=== PATIENT | female | born 1985 | race American Indian/Alaskan Native ===

== ENCOUNTER 2016-04-22 15:17 | Emergency (ER) | payer SELFPAY ==
[2016-04-22 16:08] VITALS: BP 101/68
== END 2016-04-23 | disposition left against medical advice (07) ==
LOC: ED 15:17
DX: R10.9 Unspecified abdominal pain (principal); R53.1 Weakness; Z53.21 Procedure and treatment not carried out due to patient leaving prior to being seen by health care provider

== ENCOUNTER 2016-04-23 05:09 | Inpatient (IN) | payer OTHER ==
--- NOTE | 2016-04-23 04:18 | Emergency Department Report ---
ED Female HPI - General Chief complaint: Abdominal Pain Stated complaint: ABDOMINAL PAIN Time Seen by Provider: 04/23/16 04:17 Source: patient, EMS (ems notes not available at time of chart dictation), RN notes reviewed Mode of arrival: Ambulatory Limitations: Other (patient is a poor historian) - History of Present Illness Initial comments: This is a 30-year-old female, previously unknown to me. Apparently she is brought to the hospital by EMS. Patient did not realize that she is . Upon arrival to the ER, patient was found to have an active miscarriage, with a large fetus being passed in the vaginal vault. Patient did not realize that she was . Her symptoms are constant. They're painful. She cannot describe exacerbating or relieving factors. Patient was found to be hemodynamically stable with a blood pressure in the 100s. 2 large-bore IVs were ordered. 2 L of IV fluid were ordered. Laboratory studies were ordered. Case was discussed with the leader assembler mounter sousaphones, Dr. Horta, who accepted the patient to his service to the labor and delivery floor. -: Gradual Quality: cramping Consistency: constant Improves with: none Worsens with: none Are you Now?: Yes Associated Symptoms: abdominal pain. denies: vaginal discharge - Related Data Sexually active: Yes Home Medications Medication Instructions Recorded Confirmed Last Taken No Known Home Medications [No 04/22/16 04/22/16 Unknown Reported Home Medications] Allergies Allergy/AdvReac Type Severity Reaction Status Date / Time No Known Allergies Allergy Verified 04/22/16 16:08 ED Review of Systems ROS: Stated complaint: ABDOMINAL PAIN Other details as noted in HPI Constitutional: malaise. denies: fever Eyes: denies: eye discharge ENT: denies: epistaxis Respiratory: denies: cough Cardiovascular: denies: chest pain Gastrointestinal: abdominal pain Genitourinary: as per HPI Musculoskeletal: as per HPI Skin: as per HPI Neurological: as per HPI Psychiatric: as per HPI Hematological/Lymphatic: as per HPI ED Past Medical Hx - Social History Smoking Status: Current Some Day Smoker Substance Use Type: Alcohol - Medications Home Medications: Home Medications Medication Instructions Recorded Confirmed Last Taken Type No Known Home Medications [No 04/22/16 04/22/16 Unknown History Reported Home Medications] ED Physical Exam - General Limitations: No Limitations General appearance: alert, in no apparent distress - Head Head exam: Present: atraumatic, normocephalic - Eye Eye exam: Present: normal appearance, EOMI. Absent: nystagmus - ENT ENT exam: Present: normal exam, normal orophraynx, mucous membranes moist - Neck Neck exam: Present: normal inspection, full ROM. Absent: tenderness, meningismus - Respiratory Respiratory exam: Present: normal lung sounds bilaterally. Absent: respiratory distress, wheezes, rales, rhonchi, stridor, chest wall tenderness - Cardiovascular Cardiovascular Exam: Present: normal rhythm, tachycardia, normal heart sounds. Absent: systolic murmur, diastolic murmur, rubs, gallop - GI/Abdominal GI/Abdominal exam: Present: soft, tenderness, normal bowel sounds, other ( suprapubic lower abdominal tenderness. There is no rebound, guarding or peritoneal signs.). Absent: distended, guarding, rebound, rigid, pulsatile mass - External exam: Present: normal external exam, other (a fetus is noted to be passing through the vaginal vault; formed head, torso and upper extremities are noted. Possible cord is noted. During the physical/vaginal exam, I am escorted by nurse Sandoval Montgomery) - Extremities Exam Extremities exam: Present: normal inspection, full ROM, normal capillary refill. Absent: tenderness, pedal edema, joint swelling, calf tenderness - Back Exam Back exam: Present: normal inspection, full ROM. Absent: tenderness, CVA tenderness (R), CVA tenderness (L), muscle spasm, paraspinal tenderness, vertebral tenderness - Neurological Exam Neurological exam: Present: alert, other (Extraocular movements intact. Tongue midline. No facial droop. Facial sensation intact to light touch in the V1, V2 , V3 distribution bilaterally. 5 and 5 strength in 4 extremities.. Sensation is intact to light touch in 4 extremities.). Absent: motor sensory deficit - Psychiatric Psychiatric exam: Present: normal affect, normal mood - Skin Skin exam: Present: warm, dry, intact, normal color. Absent: rash ED Course Vital Signs 04/23/16 04/23/16 03:41 04:20 Temperature 98.5 F Pulse Rate 109 H 99 H Respiratory 26 H 18 Rate Blood Pressure 136/82 Blood Pressure 106/65 [Right] O2 Sat by Pulse 99 99 Oximetry ED Medical Decision Making - Lab Data Result diagrams: 04/23/16 04:06 04/23/16 04:06 Vital Signs 04/23/16 04/23/16 03:41 04:20 Temperature 98.5 F Pulse Rate 109 H 99 H Respiratory 26 H 18 Rate Blood Pressure 136/82 Blood Pressure 106/65 [Right] O2 Sat by Pulse 99 99 Oximetry Lab Results 04/23/16 04/23/16 04/23/16 Range/Units 04:06 04:06 04:06 WBC 14.3 H (4.5-11.0) K/mm3 RBC 3.90 (3.65-5.03) M/mm3 Hgb 10.8 (10.1-14.3) gm/dl Hct 33.4 (30.3-42.9) % MCV 86 (79-97) fl MCH 28 (28-32) pg MCHC 32 (30-34) % RDW 15.4 H (13.2-15.2) % Plt Count 410 (140-440) K/mm3 Lymph % (Auto) 25.8 (13.4-35.0) % [place] % (Auto) 8.2 H (0.0-7.3) % Eos % (Auto) 3.3 (0.0-4.3) % Baso % (Auto) 0.2 (0.0-1.8) % Lymph # 3.7 (1.2-5.4) K/mm3 [place] # 1.2 H (0.0-0.8) K/mm3 Eos # 0.5 H (0.0-0.4) K/mm3 Baso # 0.0 (0.0-0.1) K/mm3 Seg Neutrophils % 62.5 (40.0-70.0) % Seg Neutrophils # 9.0 H (1.8-7.7) K/mm3 Estimated GFR > 60 ml/min BUN/Creatinine Ratio 11.11 % Total Bilirubin < 0.2 (0.1-1.2) mg/dL Albumin/Globulin Ratio 1.2 % HCG, Qual Positive (Negative) - Differential Diagnosis inevitable miscarriage Critical care attestation.: If time is entered above; I have spent that time in minutes in the direct care of this critically ill patient, excluding procedure time. ED Disposition Clinical Impression: Miscarriage Disposition: OP ADMITTED IP TO THIS HOSP Is pt being admited?: Yes Does the pt Need Aspirin: No Condition: Good Instructions: Abdominal Pain (ED)
[2016-04-23 04:47] LABS: Basophils % (Auto) 0.2 % (0.0-1.8); Eosinophils % (Auto) 3.3 % (0.0-4.3); Hematocrit 33.4 % (30.3-42.9); Hemoglobin 10.8 gm/dl (10.1-14.3); Mean Corpuscular HGB Conc 32 % (30-34); Mean Corpuscular Hemoglobin 28 pg (28-32); Mean Corpuscular Volume 86 fl (79-97); Platelet Count 410 K/mm3 (140-440); Red Cell Distribution Width 15.4 % (13.2-15.2); White Blood Count 14.3 K/mm3 (4.5-11.0)
[2016-04-23 04:56] LABS: Alanine Aminotransferase 6 units/L (7-56); Albumin 3.6 g/dL (3.9-5); Albumin/Globulin Ratio 1.2 %; Alkaline Phosphatase 74 units/L (35-129); BUN/Creatinine Ratio 11.11; Bilirubin,Total < 0.2 mg/dL (0.1-1.2); Blood Urea Nitrogen 10 mg/dL (7-17); Calcium 8.7 mg/dL (8.4-10.2); Carbon Dioxide 21 mmol/L (22-30); Chloride 101.9 mmol/L (98-107); Glucose 101 mg/dL (65-100); Potassium 3.6 mmol/L (3.6-5.0); Sodium 137 mmol/L (137-145); Total Protein 6.7 g/dL (6.3-8.2)
[2016-04-23 05:02] LABS: Anion Gap 18 mmol/L
[~2016-04-23 05:09] MED LIST: NACL 0.9% 1000 ML 2,000 ML ONE; NACL 0.9% 1000 ML IV ONE
--- NOTE | 2016-04-23 05:17 | Short Stay Summary ---
Short Stay Documentation Date of service: 04/23/16 Narrative H&P: C/O: Inevitable 30-year-old is transferred from the emergency room with inevitable , she has no care this . Her history patient cramping for 1 week, and to the ED for pain. In the emergency room, partial miscarriage occurred at about ~ 3 AM. Infant in breech presentation currently with head entrapment. He is transferred to [facility] from ED INTERN RETAIL/Medhx/Sughx: none Allergies no known drug allergies On exam, 2nd trimester appearing fetus noted protruding from the vagina in breech presentation Caput presently entrapped A: Inevitable at ~ 20 wks P: -Admit to [facility] -Type and screen -Cytotec 400 g NM. Q 3-4 hours - History Past Medical History: No medical history Past Surgical History: No surgical history Social history: single, no smoking, no alcohol abuse, no prescription drug abuse , no IV drug use - Allergies and Medications Current Medications: Allergies No Known Allergies Allergy (Verified 04/22/16 16:08) Home Medications Medication Instructions Recorded Confirmed Last Taken Type No Known Home Medications [No 04/22/16 04/22/16 Unknown History Reported Home Medications] - Physical exam General appearance: no acute distress, well-nourished Lungs: Clear to auscultation Heart: Regular rate, Normal S1, Normal S2 Gastrointestinal: normal, no tenderness, no distended, no guarding Female Genitourinary: other (See HPI) Extremities: no ischemia - Brief post op/procedure progress note Date of procedure: 04/23/16 Pre-op diagnosis: SAB at ~ 20 wks, No PNC Post-op diagnosis: same Procedure: Delivery Anesthesia: none Surgeon: LIZ OJEDA Estimated blood loss: other (600 cc) Pathology: none Condition: stable - Hospital course Hospital course: course was unremarkable, she is discharged home on day 1 in stable condition - Disposition Condition at discharge: Good Disposition: DISCHARGED TO HOME OR SELFCARE - Discharge Diagnoses (1) Second trimester Status: Acute Short Stay Discharge Plan Activity: no driving until cleared by PCP (No driving on narcotics), other ( Pelvic rest x 6 weeks) Weight Bearing Status: Weight Bear as Tolerated Diet: regular Follow up with: MELISSA YORK MD [Staff Physician] - 7 Days Prescriptions: Ibuprofen [Motrin 600 MG tab] 600 mg PO Q8H PRN #30 tablet PRN Reason: Pain Multivitamin with Iron [Multivitamins with Iron] 1 each PO DAILY #30 tablet HYDROcodone/APAP 5-325 [[place] 5/325] 1 each PO Q6HR PRN #10 tablet PRN Reason: Pain
[2016-04-23] MEDS ORDERED: NACL 0.9% 500 ML 500 ML IV ONE (05:28)
[2016-04-23] MEDS ORDERED: SUBLIMAZE ONE (05:35)
[2016-04-23] MEDS ORDERED: CYTOTEC PR ONE (05:53)
[2016-04-23] MEDS ORDERED: SUBLIMAZE IV ONE (05:54)
[2016-04-23] MEDS ORDERED: MOTRIN PO SCH (06:00)
[2016-04-23] MEDS ORDERED: PHENERGAN PR PRN (06:02)
[2016-04-23] MEDS ORDERED: BENADRYL PO PRN (06:02)
[2016-04-23] MEDS ORDERED: ZOFRAN IV PRN (06:02)
[2016-04-23] MEDS ORDERED: TYLENOL PO PRN (06:02)
[2016-04-23] MEDS ORDERED: DULCOLAX PR PRN (06:02)
[2016-04-23] MEDS ORDERED: DERMOPLAST TP PRN (06:02)
[2016-04-23] MEDS ORDERED: LANSINOH TP PRN (06:02)
[2016-04-23] MEDS ORDERED: NORCO 5/325 PO PRN (06:02)
[2016-04-23] MEDS ORDERED: TUCKS PAD TP PRN (06:02)
[2016-04-23] MEDS ORDERED: MILK OF MAGNESIA PO PRN (06:02)
[2016-04-23] MEDS ORDERED: PHENERGAN PO PRN (06:02)
--- NOTE | 2016-04-23 06:34 | Procedure Note ---
OB Delivery Note - Delivery Date of Delivery: 04/23/16 Surgeon: LIZ OJEDA Estimated blood loss: other (600 cc) - Vaginal Intrapartum events: no care (2nd trimester appearing infant, unsure of care) Delivery induction: misoprostol Delivery monitor: none Route of delivery: breech extraction Delivery placenta: spontaneous Episiotomy: none Delivery laceration: none Anesthesia: none - A at 1 minute: 0 at 5 minutes: 0 Gender: Ambiguous (Spoantaneous delivery of ~ 20 wk appearing at 05:17 AM)
[2016-04-23] MEDS ORDERED: PITOCin/NS 20 UNIT/1000ML DRIP 1,000 ML IV SCH (07:00)
[2016-04-23] MEDS ORDERED: SODIUM CHLORIDE FLUSH SYRINGE 10 ML IV NR (07:00)
[2016-04-23] MEDS ORDERED: CYTOTEC PO SCH (08:00)
[2016-04-23] MEDS ORDERED: SENOKOT S PO SCH (08:00)
[2016-04-23] MEDS ORDERED: FEOSOL PO SCH (10:00)
[2016-04-23] MEDS ORDERED: PRENATAL VITAMIN PO SCH (10:00)
[2016-04-23] MEDS ORDERED: COLACE PO SCH (10:00)
[2016-04-23 16:02] VITALS: BP 98/60
== END 2016-04-23 18:00 | disposition home or self-care (01) | DRG 770 ==
LOC: TRG 05:09 → LD 05:12 → OB 08:53
PROVIDERS: ADMIT Obstetrics & Gynecology; ATTEND Obstetrics & Gynecology
PROC: 10D17ZZ Extraction of Products of Conception, Retained, Via Natural or Artificial Opening (ICD-10-PCS; principal; 2016-04-23)
DX: O03.9 Complete or unspecified spontaneous abortion without complication (principal); O09.33 Supervision of pregnancy with insufficient antenatal care, third trimester; O99.332 Smoking (tobacco) complicating pregnancy, second trimester; F17.210 Nicotine dependence, cigarettes, uncomplicated
CPT/HCPCS: 36415; 80053; 84703; 85025; 86850; 86900; 86901; 86920; 99285; J3010; J7030

== ENCOUNTER 2017-03-06 22:22 | Outpatient (CLI) | payer MEDICAID ==
[2017-03-06] MEDS ORDERED: LACTATED RINGERS 500 ML IV ONE (23:07)
[2017-03-06 23:30] LABS: Bilirubin,Urine NEG (Negative); Blood,Urine NEG (Negative); Ketones,Urine NEG (Negative); Leukocyte Esterase,Urine MOD (Negative); Mucus,Urine 1+ /HPF; Nitrite,Urine NEG (Negative)
== END 2017-03-06 23:57 | disposition home or self-care (01) ==
LOC: TRG 22:22
PROVIDERS: ATTEND Obstetrics & Gynecology
DX: O26.893 Other specified pregnancy related conditions, third trimester (principal); R10.2 Pelvic and perineal pain; Z3A.35 35 weeks gestation of pregnancy
CPT/HCPCS: 81001; J7120

== ENCOUNTER 2017-03-12 17:25 | Outpatient (CLI) | payer MEDICAID ==
[2017-03-12 17:45] VITALS: BP 120/57
[2017-03-12] MEDS ORDERED: VISTARIL PO ONE (18:59)
[2017-03-12] MEDS ORDERED: LACTATED RINGERS 1,000 ML IV ONE (19:31)
== END 2017-03-12 19:23 | disposition home or self-care (01) ==
LOC: TRG 17:25
PROVIDERS: ATTEND Obstetrics & Gynecology
CPT/HCPCS: 59025; Q0177

== ENCOUNTER 2017-03-23 14:47 | Outpatient (CLI) | payer MEDICAID ==
[2017-03-23 16:42] VITALS: BP 126/61
--- NOTE | 2017-03-23 16:55 | Event Note ---
Date: 03/23/17 (decreased FM) BPP 01/26, reactive CAT 1 tracing. Patient states she doesnt feel baby's movement like before, but she does feel movement. I palpated abdomen x 2 minutes and clearly palpated 4 distinct movement. patient instructed on performing FKC and to call if continued decreased movement after regular meal and rest tonight. All questions addressed, pt verbalized understanding.
--- NOTE | 2017-03-23 17:20 | Ultrasound Report ---
FINAL REPORT PROCEDURE: US OB BPP WO NON-STRESS TECHNIQUE: Sonographic evaluation for breathing, movement, tone, and amniotic fluid volume was performed. CPT 44009 HISTORY: decreased movement COMPARISON: No prior studies are available for comparison. FINDINGS: Amniotic fluid volume: Normal-score 2. At least one vertical pocket > 2 cm or more in vertical axis. breathing: Normal-score 2. movement: Normal-score 2. tone: Normal. Score: 8 of 8. heart rate 146 beats per minute IMPRESSION: Normal biophysical profile.
== END 2017-03-23 17:15 | disposition home or self-care (01) ==
LOC: TRG 14:47
PROVIDERS: ATTEND Obstetrics & Gynecology
DX: O36.8130 Decreased fetal movements, third trimester, not applicable or unspecified (principal); O47.03 False labor before 37 completed weeks of gestation, third trimester; Z3A.38 38 weeks gestation of pregnancy
CPT/HCPCS: 59025; 76819

== ENCOUNTER 2017-03-24 08:01 | Inpatient (IN) | payer MEDICAID ==
[2017-03-24] MEDS ORDERED: LACTATED RINGERS 1,000 ML IV SCH ×2 (10:30→12:00)
--- NOTE | 2017-03-24 10:30 | Ultrasound Report ---
ULTRASOUND BIOPHYSICAL PROFILE: History: well being Technique: Transabdominal ultrasound with Doppler interrogation. 2 - breathing movements 2 - movements 2 - posture and tone 2 - Qualitative amniotic fluid volume 8 - TOTAL SCORE OF POSSIBLE 8 Heart Rate (bpm) 144
[2017-03-24] MEDS ORDERED: TYLENOL PO PRN (11:07)
[2017-03-24] MEDS ORDERED: ZOFRAN IV PRN (11:07)
[2017-03-24] MEDS ORDERED: COLACE PO PRN (11:07)
[2017-03-24 11:55] LABS: Basophils % (Auto) 0.4 % (0.0-1.8); Eosinophils % (Auto) 1.3 % (0.0-4.3); Hematocrit 23.2 % (30.3-42.9); Hemoglobin 7.2 gm/dl (10.1-14.3); Mean Corpuscular HGB Conc 31 % (30-34); Platelet Count 285 K/mm3 (140-440); Red Blood Count 3.43 M/mm3 (3.65-5.03); White Blood Count 8.8 K/mm3 (4.5-11.0)
[2017-03-24 11:56] LABS: Mean Corpuscular Hemoglobin 21 pg (28-32); Mean Corpuscular Volume 68 fl (79-97); Red Cell Distribution Width 20.7 % (13.2-15.2)
--- NOTE | 2017-03-24 12:32 | History and Physical Report ---
History of Present Illness Date of examination: 03/24/17 Chief complaint: decreased movement, chest pain and "just not feeling right" History of present illness: EDC Calculations LMP: 04/05/2017 Past History : 5 Term Births: 3 Living Children: 3 Para: 3 Spont. Ab: 1 # 1 Delivery date: 2006 Weeks Gestation: 40 Delivery type: Anesthesia type: none Delivery location: [facility] [place] Sex: Female weight: 6-6 # 2 Delivery date: 2008 Weeks Gestation: 40 Delivery type: Anesthesia type: epidural Delivery location: [facility] [place] Infant Sex: Female weight: 7-6 # 3 Delivery date: 2010 Weeks Gestation: 40 Delivery type: Anesthesia type: epidural Delivery location: [facility] [place] Infant Sex: Female weight: 6-6 Comments: MECONIUM Past Medical History: Negative Past Medical History Past Surgical History: Negative Past Surgical History Past Medical History Surgery (Non-fitness assistant): Negative Past Surgical History Abnormal PAP: negative ANDREA Exposure: negative Infertility: negative Uterine Anomaly: negative Uterine Surgery (not C/S): negative Other Gynecologic Problems: negative Medical History Comments: NEG Family Hx: DM HTM Social Hx: single former tobacco-stopped since Infection History Hx of STD: chlamydia Partner hx. of genital herpes: no Rash, Viral, or Febrile illness since last LMP? no Varicella/Chicken Pox Status: Previous Disease Genetic History Congenital Heart Defect: Mom: no Dad: no Rickey Disease: Mom: no Dad: no Thalassemia Mom: no Dad: no Neural Tube Defect Mom: no Dad: no Down's Syndrome Mom: no Dad: no Rainer-Sachs Mom: no Dad: no Sickle Cell Disease/Trait Mom: no Dad: yes Comments: nephew Hemophilia Mom: no Dad: no Muscular Dystrophy Mom: no Dad: no Cystic Fibrosis Mom: no Dad: no [place] Chorea Mom: no Dad: no Mental Retardation Mom: no Dad: no Fragile X Mom: no Dad: no Other Genetic/Chromosomal Disorder Mom: no Dad: no Child w/other defect Mom: no Dad: no Comments/Counseling: boyfriend's niece-missing limbs Enviromental Exposures Xray Exposure: no Medication, drug, or alcohol use since LMP: no Chemical/Other Exposure: no Exposure to Cat Liter: no Hx of Parvovirus (Fifth Disease): no Occupational Exposure to Children: none Current Allergies (reviewed today): No known allergies Past History Past Medical History: other (see HPI) Past Surgical History: no surgical history 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: other (see HPI) Family/Genetic History: other (see HPI) Social history: other (see HPI) - Obstetrical History Expected Date of Delivery: 04/05/17 Actual Gestation: 38 Week(s) 2 Day(s) : 5 Para: 3 Hx # Term Pregnancies: 3 Number of Pregnancies: 0 Spontaneous Abortions: 1 Induced : 0 Number of Living Children: 3 Medications and Allergies Allergies Allergy/AdvReac Type Severity Reaction Status Date / Time No Known Allergies Allergy Verified 03/23/17 14:56 Home Medications Medication Instructions Recorded Confirmed Last Taken Type Multivitamin with Iron 1 each PO DAILY #30 tablet 04/23/16 03/24/17 Unknown Rx [Multivitamins with Iron] Active Meds: Active Medications Acetaminophen (Tylenol) 650 mg PO Q4H PRN PRN Reason: Pain MILD(1-3)/Fever >100.5/JOVEL Docusate Sodium (Colace) 100 mg PO Q12H PRN PRN Reason: Constipation Lactated Ringer's (Lactated Ringers) 1,000 mls @ 150 mls/hr IV DIRECT ARPAN Lactated Ringer's (Lactated Ringers) 1,000 mls @ 125 mls/hr IV DIRECT ARPAN Multivitamins/Iron/Calcium ( Vitamin) 1 each PO QDAY ARPAN Ondansetron HCl (Zofran) 4 mg IV Q6H PRN PRN Reason: Nausea And Vomiting Review of Systems All systems: negative Constitutional: malaise Cardiovascular: chest pain - Vital Signs Vital signs: Vital Signs Pulse BP 105 H 120/71 03/24/17 08:20 03/24/17 08:20 Temp Pulse Resp BP Pulse Ox 97.1 F L 82 20 115/60 99 03/24/17 10:45 03/24/17 12:31 03/24/17 10:45 03/24/17 10:48 03/24/17 12:31 - Physical Exam Breasts: Positive: normal Cardiovascular: Regular rate Lungs: Positive: Clear to auscultation, Normal air movement Abdomen: Positive: normal appearance, soft Vulva: both: normal Vagina: Positive: normal moisture Extremities: Positive: normal Deep Tendon Reflex Grade: Normal +2 - Obstetrical FHR: category 2 Uterine Contraction Monitor Mode: External Uterine Contraction Pattern: Irregular Results Result Diagrams: 03/24/17 11:40 Abnormal lab results 03/24/17 Range/Units 11:40 RBC 3.43 L (3.65-5.03) M/mm3 Hgb 7.2 L (10.1-14.3) gm/dl Hct 23.2 L (30.3-42.9) % MCV 68 L (79-97) fl MCH 21 L (28-32) pg RDW 20.7 H (13.2-15.2) % [place] % (Auto) 8.6 H (0.0-7.3) % Seg Neutrophils % 73.2 H (40.0-70.0) % All other labs normal. Assessment and Plan 31y/o @ 38w2d, complicated by anemia, late care @ 23 weeks, THC use in and rubella non-immune. Pt arrived to triage (second visit in 24h) reporting decreased movement and generalized "not feeling right." she also c/o nonspecific chest pain. Patient's c/o last night was decreased movement and she did not mention any of her other symptoms. Last night BPP 10/10, reactive NST and movement palpated by this provider 4 distinct movements in 2 minutes. Patient called the answering service this morning with c /o decreased movement (6-7 movements over the course of 6 hours) and not feeling well. 12L EKG done in triage showed sinus arrhythemia. H&H is now 7/23 ( 8.5/28.3 at initial OB visit in December). Tracing overall reassuring with accels and moderate variability, possibly some variables noted. Plan, Dr. Mullen consulted: extended monitoring and cardiology consult. Observation orders in EMR - Patient Problems (1) 38 weeks gestation of Current Visit: Yes Status: Acute (2) Abnormal finding on EKG Current Visit: Yes Status: Acute Plan to address problem: 12l EKG done d/t patient's complaints of chest pain Sinus arrhythmia noted Cardiology consult with Dr. Park (3) Anemia affecting in third trimester Current Visit: Yes Status: Acute (4) Non-reassuring electronic monitoring tracing Current Visit: Yes Status: Acute Plan to address problem: BPP 8/8 Extended monitoring (5) Rubella non-immune status, antepartum Current Visit: Yes Status: Acute Plan to address problem: MMR
[2017-03-24 13:33] LABS: Urine Drugs of Abuse Note Disclamer
[2017-03-24 13:49] LABS: Bilirubin,Urine NEG (Negative); Blood,Urine NEG (Negative); Ketones,Urine NEG (Negative); Leukocyte Esterase,Urine LG (Negative); Mucus,Urine FEW /HPF; Nitrite,Urine NEG (Negative); Protein,Urine <15 mg/dL mg/dL (Negative); Urobilinogen,Urine < 2.0 mg/dL (<2.0)
--- NOTE | 2017-03-24 14:44 | Event Note ---
Date: 03/24/17 Pt seems to have symptomatic anemia but also had EKG done that showed sinus arrythmia. Cards has been consulted and will given one unit of blood. Pt has been anemic through out this gestation but has not take iron as rx'd. She does not show signs of labor at this time as per paint spray tender exam.
[2017-03-24] MEDS ORDERED: NACL 0.9% 500 ML 500 ML IV NR (14:54)
[2017-03-24] MEDS ORDERED: NACL 0.9% 250ML 250 ML ONE (23:07)
--- NOTE | 2017-03-25 06:28 | Progress Note ---
Assessment and Plan - Patient Problems (1) Abnormal finding on EKG Onset Date: ~03/25/17 Current Visit: Yes Status: Acute Plan to address problem: Cardiology to see today (2) Anemia affecting in third trimester Onset Date: ~03/25/17 Current Visit: Yes Status: Acute Plan to address problem: Pt resting C/O just being tired States she does feel much better after the transfusion FHR Cat 1 No ctx recorded.. EFM off for AM care Diet ordered. Possible d/c today if cleared by Cardiology. Continue POC for now. Subjective - Subjective Date of service: 03/25/17 (transfusion completed CBC pending) Principal diagnosis: IUP 38w3d Anemia; S/P transfusion Patient reports: movement normal Objective - Vital Signs Vital Signs: Vital Signs - 12hr 03/24/17 03/24/17 03/24/17 19:26 19:30 23:27 Temperature 97.4 F L 97.4 F L Pulse Rate 93 H 93 H 94 H Respiratory 18 18 Rate Blood Pressure 110/65 112/63 Blood Pressure 110/65 [Right] 03/24/17 03/24/17 03/25/17 23:30 23:47 00:20 Temperature Pulse Rate 94 H 91 H 97 H Respiratory Rate Blood Pressure 112/63 117/68 109/57 Blood Pressure [Right] 03/25/17 03/25/17 00:39 01:11 Temperature Pulse Rate 95 H 93 H Respiratory Rate Blood Pressure 111/60 119/59 Blood Pressure [Right] - Exam Breasts: deferred Cardiovascular: Regular rate Lungs: Normal air movement Abdomen: Present: normal appearance, soft, normal bowel sounds. Absent: distention, tenderness Uterus: Present: normal FHR: auscultation normal, category 1 Uterine Contraction Monitor Mode: External Uterine Contraction Pattern: Absent Uterine Tone Measurement Phase: Resting Extremities: normal - Labs Labs: Abnormal Labs 03/24/17 03/24/17 03/24/17 11:40 12:05 17:19 RBC 3.43 L Hgb 7.2 L Hct 23.2 L MCV 68 L MCH 21 L RDW 20.7 H [place] % (Auto) 8.6 H Seg Neutrophils % 73.2 H Urine WBC (Auto) 10.0 H Crossmatch See Detail Laboratory Results - last 24 hr 03/24/17 03/24/17 03/24/17 11:40 12:05 12:05 WBC 8.8 RBC 3.43 L Hgb 7.2 L Hct 23.2 L MCV 68 L MCH 21 L MCHC 31 RDW 20.7 H Plt Count 285 Lymph % (Auto) 16.5 [place] % (Auto) 8.6 H Eos % (Auto) 1.3 Baso % (Auto) 0.4 Lymph # 1.4 [place] # 0.8 Eos # 0.1 Baso # 0.0 Seg Neutrophils % 73.2 H Seg Neutrophils # 6.4 Urine Color Yellow Urine Turbidity Clear Urine pH 7.0 Ur Specific [place] 1.011 Urine Protein <15 mg/dl Urine Glucose (UA) Neg Urine Ketones Neg Urine Blood Neg Urine Nitrite Neg Urine Bilirubin Neg Urine Urobilinogen < 2.0 Ur Leukocyte Esterase Lg Urine WBC (Auto) 10.0 H Urine RBC (Auto) 4.0 U Epithel Cells (Auto) 7.0 Urine Mucus Few Urine Opiates Screen Presumptive negative Urine Methadone Screen Presumptive negative Ur Barbiturates Screen Presumptive negative Ur Phencyclidine Scrn Presumptive negative Ur Amphetamines Screen Presumptive negative U Benzodiazepines Scrn Presumptive negative Urine Cocaine Screen Presumptive negative U Marijuana (THC) Screen Presumptive negative Drugs of Abuse Note Disclamer Blood Type Antibody Screen Crossmatch 03/24/17 17:19 WBC RBC Hgb Hct MCV MCH MCHC RDW Plt Count Lymph % (Auto) [place] % (Auto) Eos % (Auto) Baso % (Auto) Lymph # [place] # Eos # Baso # Seg Neutrophils % Seg Neutrophils # Urine Color Urine Turbidity Urine pH Ur Specific [place] Urine Protein Urine Glucose (UA) Urine Ketones Urine Blood Urine Nitrite Urine Bilirubin Urine Urobilinogen Ur Leukocyte Esterase Urine WBC (Auto) Urine RBC (Auto) U Epithel Cells (Auto) Urine Mucus Urine Opiates Screen Urine Methadone Screen Ur Barbiturates Screen Ur Phencyclidine Scrn Ur Amphetamines Screen U Benzodiazepines Scrn Urine Cocaine Screen U Marijuana (THC) Screen Drugs of Abuse Note Blood Type O POSITIVE Antibody Screen Negative Crossmatch See Detail
[2017-03-25 07:44] LABS: Hematocrit 25.3 % (30.3-42.9); Hemoglobin 7.9 gm/dl (10.1-14.3)
[2017-03-25] MEDS ORDERED: PRENATAL VITAMIN PO SCH (10:00)
[2017-03-25 11:51] VITALS: BP 112/62
--- NOTE | 2017-03-25 13:55 | Discharge Summary ---
Providers - Providers Date of Admission: 03/25/17 12:08 Date of discharge: 03/25/17 (pt request to go home Will see Cardiology outpatient) Attending physician: DAVE GLYNN 03/24/17 11:07 Consult to Physician [CONS] Routine Consulting Provider: LIANNE HORTON Reason For Exam: sinus arrhythmia, chest pain, [address] consult to:: Tash Notified:: Y Phone number called:: [phone] Was contact made?: Yes If yes, spoke with:: Edith Time called:: 07:17 Comment:: call placed to ans service Primary care physician: RHODA MONTERROSO Hospitalization Reason for admission: other (malaise anemia; recieved transfusion) Discharge diagnosis: other (anemia) Hospital course: anemia sx resolved with one unit PRC Pt d/c home with instructions Keep appt pedro pablo for tomorrow in our office Pt will call for appt with Cardiology information provided VSS Cat 1 strip Occ mild ctx Cervix closed All questions addressed Condition at discharge: Good Disposition: DC-01 TO HOME OR SELFCARE - Discharge Diagnoses (1) Abnormal finding on EKG Status: Acute Comment: pt will call cardiology for out pt appt (2) Anemia affecting in third trimester Status: Acute Comment: rx po iron and colace provided at d/c Plan - Provider Discharge Summary Activity: routine Diet: other (increase dietary iron) Instructions: routine Additional instructions: [] Smoking cessation referral if applicable(refer to patient education folder for contact #) [] Refer to [facility]'s [facility] Booklet Call your doctor immediately for: * Fever > 100.5 * Heavy vaginal bleeding ( >1 pad per hour) * Severe persistent headache * Shortness of breath * Reddened, hot, painful area to leg or breast * Drainage or odor from incision. * Keep incision clean and dry at all times and follow doctor's instructions regarding bathing/showering - Follow up plan Follow up: RHODA MONTERROSO MD [Primary Care Provider] - 03/26/17 (Keep appointment in our office as scheduled Call Cardiology office: [facility] ; [address] [place] [address]; [place] [address]; Call [phone] with any concerns.)
[2017-03-25] MEDS ORDERED: NACL 0.9% 250ML 250 ML IV ONE (23:07)
== END 2017-03-25 14:50 | disposition home or self-care (01) | DRG 781 ==
LOC: TRG 08:01 → LD 16:48 → OBSVTOIN 03-25 12:08
PROVIDERS: ADMIT Obstetrics & Gynecology; ATTEND Obstetrics & Gynecology
PROC: 30233N1 Transfusion of Nonautologous Red Blood Cells into Peripheral Vein, Percutaneous Approach (ICD-10-PCS; principal; 2017-03-25)
DX: O99.013 Anemia complicating pregnancy, third trimester (principal); D64.9 Anemia, unspecified; O76 Abnormality in fetal heart rate and rhythm complicating labor and delivery; Z3A.38 38 weeks gestation of pregnancy; Z87.891 Personal history of nicotine dependence; Z82.49 Family history of ischemic heart disease and other diseases of the circulatory system; Z83.3 Family history of diabetes mellitus
CPT/HCPCS: 36415; 76819; 80307; 81001; 85014; 85018; 85025; 86850; 86900; 86901; 86920; 93005; 93010; G0378; J7050; J7120; P9016

== ENCOUNTER 2017-03-28 21:16 | Inpatient (IN) | payer MEDICAID ==
[2017-03-28] MEDS ORDERED: BRETHINE SUB-Q PRN (22:19)
[2017-03-28] MEDS ORDERED: MINERAL OIL PO PRN (22:19)
[2017-03-28] MEDS ORDERED: XYLOCAINE 2% INFILTRATI ONE (22:19)
[2017-03-28] MEDS ORDERED: ZOFRAN IV PRN (22:19)
[2017-03-28] MEDS ORDERED: STADOL IV PRN (22:19)
[2017-03-28] MEDS ORDERED: SUBLIMAZE IV PRN (22:19)
[2017-03-28] MEDS ORDERED: ePHEDrine SULFATE IV PRN (22:19)
[2017-03-28] MEDS ORDERED: BRETHINE IVP PRN (22:19)
--- NOTE | 2017-03-28 22:26 | History and Physical Report ---
History of Present Illness Date of examination: 03/28/17 Date of admission: 03/28/2017 Chief complaint: 31 yo G admitted in active labor at term MBT o pos , Rub not Im, GBS neg Admitted a week ago with chest pain, sinus arrhythmia and received 1 unit PRBC and discharged to out pt Cardiology f/u. No problems since and has felt better. 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 Weight (lb): 178 BMI: 29.7 Pre- Weight: 160 BP: 90/ 50 mm Hg Ur. Protein: negative Ur. Glucose: negative Chief Complaint/Current Status: New patient presents for missed period, she complains of some nvp and breast tenderness....Maribeth Mcarthur Menstrual History Regularity: regular Menses every: 28 days Duration: 5 LMP: 06/29/2016 LMP reliability: definite LMP character: normal test type: urine test Date: 12/09/2016 BC at conception: none Planned ? yes EDC Calculations LMP: 04/05/2017 EDC Confirmation: 04/05/2017 Gestational Age: 23 2/7 weeks Past History : 5 Term Births: 3 Living Children: 3 Para: 3 Spont. Ab: 1 # 1 Delivery date: 2006 Weeks Gestation: 40 Delivery type: Anesthesia type: none Delivery location: [facility] [place] Sex: Female weight: 6-6 # 2 Delivery date: 2008 Weeks Gestation: 40 Delivery type: Anesthesia type: epidural Delivery location: [facility] [place] Infant Sex: Female weight: 7-6 # 3 Delivery date: 2009 Weeks Gestation: 40 Delivery type: Anesthesia type: epidural Delivery location: 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 of genital herpes: no Rash, Viral, or Febrile illness since last LMP? no Varicella/Chicken Pox Status: Previous Disease Genetic History Congenital Heart Defect: Mom: no Dad: no Rickey Disease: Mom: no Dad: no Thalassemia Mom: no Dad: no Neural Tube Defect Mom: no Dad: no Down's Syndrome Mom: no Dad: no Rainer-Sachs Mom: no Dad: no Sickle Cell Disease/Trait Mom: no Dad: yes Comments: nephew Hemophilia Mom: no Dad: no Muscular Dystrophy Mom: no Dad: no Cystic Fibrosis Mom: no Dad: no Eric Chorea Mom: no Dad: no Mental Retardation Mom: no Dad: no Fragile X Mom: no Dad: no Other Genetic/Chromosomal Disorder Mom: no Dad: no Child w/other defect Mom: no Dad: no Comments/Counseling: boyfriend's niece-missing limbs Enviromental Exposures Xray Exposure: no Medication, drug, or alcohol use since LMP: no Chemical/Other Exposure: no Exposure to Cat Liter: no Hx of Parvovirus (Fifth Disease): no Occupational Exposure to Children: none Current Allergies (reviewed today): No known allergies Laboratory Results Date/Time Collected: 12/09/2016 Routine Urinalysis Leukocytes: negative Nitrite: negative Urobilinogen: negative Protein: negative Blood: negative Ketone: negative Bilirubin: negative Glucose: negative Urine HCG: positive PHYSICAL EXAM HEENT: PERRLA, normal conjunctiva, external nose and nasal mucosa normal, oropharynx clear Neck/Thyroid: supple, thyroid normal Skin no significant abnormal lesions or rashes Chest: respiratory effort normal, clear to auscultation Breasts: normal without skin changes or masses CV: regular, normal S1-S2, no murmur, no rub, no gallop Abdomen: normal bowel sounds, soft, nontender, no HSM Musculoskeletal: grossly normal ROM in joints, no joint tenderness or muscle weakness Neuro: grossly normal DTRs, sensation, strength, cranial nerves Extremities: no clubbing, cyanosis, or edema 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 Vulva/Vagina: No lesions, normal BUS, normal rugae Cervix: No lesions; no cervical motion tenderness Uterus: normal size and position, midline, mobile Adnexae: no masses or tenderness Rectovaginal: no masses or tenderness Flowsheet View for Follow-up Visit Estimated weeks of gestation: 23 2/7 Weight: 178 Blood pressure: 90 / 50 Urine protein: negative Urine glucose: negative Urine nitrite: negative Impression & Recommendations: Problem # 1: Irregular Menses ([id number]) Orders: Vaginal Delivery(w/ antepartum and care) (CPT-91138) Handling specimen fee (CPT-99153) Missed period US (CPT-83756) Urine Test (UPT) (CPT-28645) Pap(<30yo) CT/NG rflx HR HPV ([id number])([id number]) (CPT-59027) Urine Chemstrip (CPT-35969) Past History - Obstetrical History : 5 Medications and Allergies Allergies Allergy/AdvReac Type Severity Reaction Status Date / Time No Known Allergies Allergy Verified 03/23/17 14:56 Home Medications Medication Instructions Recorded Confirmed Last Taken Type Ferrous Sulfate [Feosol 325 MG tab] 325 mg PO BID #60 tablet 03/25/17 03/28/17 03/28/17 Rx Vit-Fe Fumar-FA [ 1 tab PO QDAY 03/28/17 03/28/17 03/28/17 History Vitamin] - Vital Signs Vital signs: Vital Signs Temp Resp 97.6 F 20 03/28/17 21:32 03/28/17 21:32 Temp Pulse Resp BP Pulse Ox 97.6 F 82 20 117/56 99 03/28/17 21:32 03/28/17 22:19 03/28/17 21:32 03/28/17 21:34 03/28/17 22:19 Results Result Diagrams: 03/28/17 23:05 All other labs normal. Assessment and Plan - Patient Problems (1) Active labor at term Current Visit: Yes Status: Acute (2) Anemia affecting in third trimester Onset Date: ~03/25/17 Current Visit: No Status: Acute (3) Late care complicating in second trimester Current Visit: No Status: Acute
[2017-03-28] MEDS ORDERED: PITOCin/NS 20 UNIT/1000ML DRIP 20 UNITS/1,000 ML BAG IV SCH (23:00)
[2017-03-28] MEDS ORDERED: PITOCin/NS 30 UNIT/500ML 30 UNITS/500 ML BAG IV SCH ×2 (23:00)
[2017-03-28] MEDS: LACTATED RINGERS 1,000 ML IV SCH (23:05)
[2017-03-28 23:51] LABS: Hematocrit 26.9 % (30.3-42.9); Hemoglobin 8.3 gm/dl (10.1-14.3); Mean Corpuscular HGB Conc 31 % (30-34); Platelet Count 282 K/mm3 (140-440); Red Blood Count 3.92 M/mm3 (3.65-5.03); White Blood Count 11.2 K/mm3 (4.5-11.0)
[2017-03-28 23:53] LABS: Mean Corpuscular Hemoglobin 21 pg (28-32); Mean Corpuscular Volume 69 fl (79-97); Red Cell Distribution Width 21.3 % (13.2-15.2)
[2017-03-28] MEDS ORDERED: fentaNYL-BUPIV 2 MCG/ML-0.125% 200 MCG/100 ML BAG EPIDURAL ONE (23:53)
[2017-03-29] MEDS: LACTATED RINGERS 1,000 ML IV SCH (00:09)
[2017-03-29] MEDS ORDERED: NARCAN 2 MG/2 ML IV PRN (00:19)
[2017-03-29] MEDS ORDERED: ePHEDrine SULFATE IV PRN (00:19)
--- NOTE | 2017-03-29 00:19 | Anesthesia Consultation ---
Anesthesia Consult and Med Hx Date of service: 03/29/17 - Airway Anesthetic Teeth Evaluation: Good ROM Head & Neck: Adequate Mental/Hyoid Distance: Adequate Mallampati Class: Class II Intubation Access Assessment: Probably Good - Pulmonary Exam CTA: Yes - Cardiac Exam Cardiac Exam: RRR - Pre-Operative Health Status ASA Pre-Surgery Classification: ASA2 Proposed Anesthetic Plan: Epidural - Pulmonary Hx Asthma: No COPD: No Hx Pneumonia: No - Cardiovascular System Hx Hypertension: No - Central Nervous System Hx Seizures: No Hx Psychiatric Problems: No - Endocrine Hx Renal Disease: No Hx End Stage Renal Disease: No Hx Hypothyroidism: No Hx Hyperthyroidism: No - Hematic Hx Anemia: Yes (blood transfusion on night) Hx Sickle Cell Disease: No - Other Systems Hx Alcohol Use: No
[2017-03-29] MEDS ORDERED: fentaNYL-BUPIV 2 MCG/ML-0.125% 200 MCG/100 ML BAG EPIDURAL SCH (01:00)
--- NOTE | 2017-03-29 02:05 | Procedure Note ---
OB Delivery Note - Delivery Date of Delivery: 03/29/17 Surgeon: RHODA MONTERROSO Estimated blood loss: 300cc - Vaginal Delivery presentation: vertex Delivery position: OA Intrapartum events: none Delivery induction: none Delivery monitor: external FHT, external uterine Route of delivery: Delivery placenta: spontaneous Delivery cord: nuchal cord, 3 umbilical vessels Episiotomy: none Delivery laceration: none (minor periurethral) Anesthesia: epidural - Infant A at 1 minute: 8 at 5 minutes: 9 Infant Gender: Male (7#8oz 3414 gm)
[2017-03-29] MEDS ORDERED: LANSINOH TP PRN (02:08)
[2017-03-29] MEDS ORDERED: DULCOLAX PR PRN (02:08)
[2017-03-29] MEDS ORDERED: TYLENOL PO PRN (02:08)
[2017-03-29] MEDS ORDERED: PHENERGAN PO PRN (02:08)
[2017-03-29] MEDS ORDERED: MILK OF MAGNESIA PO PRN (02:08)
[2017-03-29] MEDS ORDERED: TUCKS PAD TP PRN (02:08)
[2017-03-29] MEDS ORDERED: PHENERGAN PR PRN (02:08)
[2017-03-29] MEDS ORDERED: ZOFRAN IV PRN (02:08)
[2017-03-29] MEDS ORDERED: BENADRYL PO PRN (02:08)
[2017-03-29] MEDS ORDERED: SODIUM CHLORIDE FLUSH SYRINGE 10 ML IV PRN (03:00)
[2017-03-29] MEDS: MOTRIN PO SCH ×3 (04:30→22:09)
[2017-03-29] MEDS: NORCO 5/325 PO PRN ×3 (06:16→17:58)
--- NOTE | 2017-03-29 07:38 | Event Note ---
Date: 03/29/17 (pt 4hr PP) pt resting quietly No c/o voiced Continue pathway Advance as tolerated
[2017-03-29] MEDS: COLACE PO SCH ×2 (10:45→22:09)
[2017-03-29 14:40] LABS: Hematocrit 26.4 % (30.3-42.9); Hemoglobin 8.3 gm/dl (10.1-14.3)
[2017-03-30] MEDS: MOTRIN PO SCH ×2 (00:20→05:30)
[2017-03-30] MEDS ORDERED: M-M-R II VACCINE SUB-Q ONE (02:08)
[2017-03-30] MEDS ORDERED: BOOSTRIX IM ONE (06:00)
--- NOTE | 2017-03-30 08:07 | Progress Note ---
Assessment and Plan patient doing well w/o complaints. VSSAF, lochia scant, H&H 8.3/26.4 ( preexisting anemia, asymptomatic.)patient breast feeding without concerns. plan for d/c home today with routine f/u in office. - Patient Problems (1) Vaginal delivery Current Visit: Yes Status: Acute Subjective - Subjective Date of service: 03/30/17 Principal diagnosis: day #1 s/p Patient reports: appetite normal, voiding normally, pain well controlled, ambulating normally, no dizzy ambulation, no nauseated [place]: doing well, nursing well Objective - Vital Signs Latest vital signs: Vital Signs Temp Pulse Resp BP Pulse Ox 03/29/17 23:00 97.9 F 84 18 109/69 03/29/17 16:51 99.2 F 83 20 105/65 98 03/29/17 11:54 98.0 F 91 H 18 112/78 99 03/29/17 08:50 97.6 F 96 H 20 98/68 99 Intake and Output 03/29/17 03/30/17 03/30/17 23:59 07:59 15:59 Intake Total 600 240 Balance 600 240 Intake: Intake, Free Water 600 240 Other: # Voids Void 2 1 # Bowel Movements 1 - Exam Breasts: Present: normal, Cardiovascular: Present: Regular rate Lungs: Present: Clear to auscultation, Normal air movement Abdomen: Present: normal appearance, soft, normal bowel sounds Vulva: both: normal Uterus: Present: normal, firm, fundal height at umbilicus Extremities: Present: normal - Labs Labs: Abnormal lab results 03/29/17 Range/Units 14:12 Hgb 8.3 L (10.1-14.3) gm/dl Hct 26.4 L (30.3-42.9) %
--- NOTE | 2017-03-30 08:08 | Discharge Summary ---
Providers - Providers Date of Admission: 03/28/17 22:42 Date of discharge: 03/30/17 Attending physician: RHODA MONTERROSO Primary care physician: RHODA MONTERROSO Hospitalization Reason for admission: active labor Delivery: Episiotomy: none Laceration: none Other procedures: none complications: none Discharge diagnosis: IUP at term delivered baby: male Hospital course: uncomplicated vaginal Condition at discharge: Good Disposition: DC-01 TO HOME OR SELFCARE - Discharge Diagnoses (1) Vaginal delivery Status: Acute Plan - Discharge Medications Prescriptions: Ibuprofen [Motrin 600 MG tab] 600 mg PO Q8H PRN #30 tablet PRN Reason: Pain Lidocain2.5%/Prilocai2.5% [Emla] 5 gm TP 1XW #1 tube - Provider Discharge Summary Activity: routine, no sex for 6 weeks, no heavy lifting 4 weeks, no strenuous exercise Diet: routine Instructions: routine Additional instructions: [] Smoking cessation referral if applicable(refer to patient education folder for contact #) [] Refer to [facility]'s [facility] Booklet Call your doctor immediately for: * Fever > 100.5 * Heavy vaginal bleeding ( >1 pad per hour) * Severe persistent headache * Shortness of breath * Reddened, hot, painful area to leg or breast * Drainage or odor from incision. * Keep incision clean and dry at all times and follow doctor's instructions regarding bathing/showering - Follow up plan Follow up: RHODA MONTERROSO MD [Primary Care Provider] - 7 Days (Congratulations! Please call [phone] to schedule your son's circumcision in 1 week and your appointment in 4 weeks. Bring EMLA cream to your son's appointment and await further instructions. Call for any questions or concerns.)
[2017-03-30 14:04] VITALS: BP 109/61
== END 2017-03-30 13:05 | disposition home or self-care (01) | DRG 775 ==
LOC: TRG 21:16 → LD 22:42 → OB 03-29 04:21
PROVIDERS: ADMIT Obstetrics & Gynecology; ATTEND Obstetrics & Gynecology
PROC: 10E0XZZ Delivery of Products of Conception, External Approach (ICD-10-PCS; principal; 2017-03-29)
PROC: 3E0R3BZ Introduction of Anesthetic Agent into Spinal Canal, Percutaneous Approach (ICD-10-PCS; 2017-03-29)
PROC: 00HU33Z Insertion of Infusion Device into Spinal Canal, Percutaneous Approach (ICD-10-PCS; 2017-03-29)
PROC: 3E0234Z Introduction of Serum, Toxoid and Vaccine into Muscle, Percutaneous Approach (ICD-10-PCS; 2017-03-30)
DX: O69.81X0 Labor and delivery complicated by cord around neck, without compression, not applicable or unspecified (principal); Z37.0 Single live birth; O99.02 Anemia complicating childbirth; D64.9 Anemia, unspecified; O71.82 Other specified trauma to perineum and vulva; Z83.3 Family history of diabetes mellitus; Z82.49 Family history of ischemic heart disease and other diseases of the circulatory system; Z87.891 Personal history of nicotine dependence; Z3A.39 39 weeks gestation of pregnancy; Z23 Encounter for immunization
CPT/HCPCS: 36415; 85014; 85018; 85027; 86592; 86850; 86900; 86901; 99211; G0463; J2590; J7120

== ENCOUNTER 2017-04-17 18:08 | Emergency (ER) | payer MEDICAID ==
[2017-04-17 18:17] VITALS: BP 136/82
--- NOTE | 2017-04-17 19:41 | XRay Report ---
FINAL REPORT PROCEDURE: Left ankle. TECHNIQUE: Three views. HISTORY: Ankle injury. COMPARISON: No prior studies are available for comparison. FINDINGS: The bones appear intact without fracture or dislocation. The joint spaces are normal. There is soft tissue swelling overlying the lateral malleolus. IMPRESSION: Mild soft tissue swelling without fracture.
--- NOTE | 2017-04-17 20:13 | Emergency Department Report ---
ED General Adult HPI - General Chief complaint: Extremity Injury, Lower Stated complaint: LEFT ANKLE PAIN Time Seen by Provider: 04/17/17 20:02 Source: patient Mode of arrival: Ambulatory Limitations: No Limitations - History of Present Illness Initial comments: Patient is a 31-year-old female who is status post a fall with left ankle injury. Patient states that she twisted her ankle. She doesn't remember whether she inverted her extra inverted the ankle. Patient did hear a snapping sound. Patient reports pain in the lateral malleolus area. Patient states that there is pain radiating up the leg up to the mid fischer. Patient states there is only swelling at the ankle. Patient is ambulatory after the injury but does have a significant limp. -: This afternoon Severity scale (0 -10): 7 Quality: aching Improves with: none Worsens with: movement Associated Symptoms: denies other symptoms - Related Data Home Medications Medication Instructions Recorded Confirmed Last Taken Vit-Fe Fumar-FA [ 1 tab PO QDAY 03/28/17 03/28/17 03/28/17 Vitamin] Previous Rx's Medication Instructions Recorded Last Taken Type Ferrous Sulfate [Feosol 325 MG tab] 325 mg PO BID #60 tablet 03/25/17 03/28/17 Rx Ibuprofen [Motrin 600 MG tab] 600 mg PO Q8H PRN #30 tablet 03/29/17 Unknown Rx Lidocain2.5%/Prilocai2.5% [Emla] 5 gm TP 1XW #1 tube 03/29/17 Unknown Rx Ibuprofen [Motrin 800 MG tab] 800 mg PO ONCE #20 tablet 04/17/17 Unknown Rx Allergies Allergy/AdvReac Type Severity Reaction Status Date / Time No Known Allergies Allergy Verified 04/17/17 18:14 ED Review of Systems ROS: Stated complaint: LEFT ANKLE PAIN Other details as noted in HPI Comment: All other systems reviewed and negative ED Past Medical Hx - Past Medical History Hx Hypertension: No Hx Congestive Heart Failure: No Hx Diabetes: No Hx Deep Vein Thrombosis: No Hx Renal Disease: No Hx Sickle Cell Disease: No Hx Seizures: No Hx Asthma: No Hx COPD: No Hx HIV: No - Social History Smoking Status: Never Smoker - Medications Home Medications: Home Medications Medication Instructions Recorded Confirmed Last Taken Type Ferrous Sulfate [Feosol 325 MG tab] 325 mg PO BID #60 tablet 03/25/17 03/28/1717 Rx Vit-Fe Fumar-FA [ 1 tab PO QDAY 03/28/17 03/28/17 03/28/17 History Vitamin] Ibuprofen [Motrin 600 MG tab] 600 mg PO Q8H PRN #30 tablet 03/29/17 Unknown Rx Lidocain2.5%/Prilocai2.5% [Emla] 5 gm TP 1XW #1 tube 03/29/17 Unknown Rx Ibuprofen [Motrin 800 MG tab] 800 mg PO ONCE #20 tablet 04/17/17 Unknown Rx ED Physical Exam - General Limitations: No Limitations General appearance: alert - Head Head exam: Present: atraumatic - Eye Eye exam: Present: normal appearance - ENT ENT exam: Present: normal exam - Neck Neck exam: Present: normal inspection - Respiratory Respiratory exam: Present: normal lung sounds bilaterally - Cardiovascular Cardiovascular Exam: Present: regular rate, normal rhythm - GI/Abdominal GI/Abdominal exam: Present: soft. Absent: distended, tenderness - Extremities Exam Extremities exam: Present: other (patient has swelling and tenderness at the lateral malleolus. There is decreased range of motion secondary to pain.) - Neurological Exam Neurological exam: Present: oriented X3 - Psychiatric Psychiatric exam: Present: normal affect - Skin Skin exam: Present: warm, dry, intact ED Course Vital Signs 04/17/17 18:14 Temperature 99.2 F Pulse Rate 98 H Respiratory 18 Rate Blood Pressure 136/82 O2 Sat by Pulse 100 Oximetry ED Medical Decision Making - Radiology Data Radiology results: report reviewed, image reviewed interpreted by me: Soft tissue swelling no fracture seen - Medical Decision Making Patient will be given follow with orthopedics. Patient will be given crutches as well as an air splint with Dat wrap. Patient is been instructed to use RICE. And will be discharged in stable condition Critical care attestation.: If time is entered above; I have spent that time in minutes in the direct care of this critically ill patient, excluding procedure time. ED Disposition Clinical Impression: High ankle sprain of left lower extremity Disposition: DC-01 TO HOME OR SELFCARE Is pt being admited?: No Does the pt Need Aspirin: No Condition: Fair Instructions: Ankle Sprain (ED), Ankle Stirrup Splint (ED) Prescriptions: Ibuprofen [Motrin 800 MG tab] 800 mg PO ONCE #20 tablet
[2017-04-17] MEDS ORDERED: NORCO 5/325 PO ONE (20:16)
[2017-04-17] MEDS ORDERED: MOTRIN PO ONE (20:16)
== END 2017-04-17 20:41 | disposition home or self-care (01) ==
LOC: ED 18:08
DX: S93.492A Sprain of other ligament of left ankle, initial encounter (principal); W17.89XA Other fall from one level to another, initial encounter; Y93.89 Activity, other specified; Y92.89 Other specified places as the place of occurrence of the external cause; Y99.8 Other external cause status

== ENCOUNTER 2017-07-15 22:44 | Emergency (ER) | payer MEDICAID ==
[2017-07-15] MEDS ORDERED: BENADRYL ONE (23:04)
[2017-07-15] MEDS ORDERED: PEPCID IV ONE ×2 (23:14→23:29)
[2017-07-15] MEDS ORDERED: BENADRYL IV ONE (23:29)
[2017-07-16] MEDS ORDERED: TORADOL IV ONE (03:14)
[2017-07-16] MEDS ORDERED: NACL 0.9% 1000 ML 1,000 ML IV ONE (03:14)
--- NOTE | 2017-07-16 03:21 | Emergency Department Report ---
ED Allergic Reaction HPI - General Chief complaint: Allergic Reaction Stated complaint: ALLERGIC REACTION Time Seen by Provider: 07/16/17 03:07 Source: patient Mode of arrival: Ambulatory Limitations: No Limitations - History of Present Illness Initial Comments: This is a 31-year-old female nontoxic, well nourished in appearance, no acute signs of distress presents to the ED with c/o of bilateral eyelids swelling, itching, and abdominal pain. Patient stated last night around 11 PM patient took Advil liquid and then developed bilateral eyelid swelling and itching and abdominal pain. Patient describes abdominal pain as aching diffusely with level of 8/10. Patient denies any vaginal bleeding, vaginal discharge, diarrhea, vomiting, chest pain, shortness of breath, fever, chills, nausea, vomiting, headache or stiff neck. Patient denies any difficulty breathing, drooling. Patient denies any other facial swelling or tongue swelling. Patient denies any allergies or significant past medical history. MD Complaint: allergic reaction, facial swelling, other (abdominal pain) -: Last night Exposure: medication Symptoms: itching, facial swelling, abdominal pain Severity: moderate Treatment Prior to Arrival: none Previous Allergy History: none - Related Data Home Medications Medication Instructions Recorded Confirmed Last Taken Vit-Fe Fumar-FA [ 1 tab PO QDAY 03/28/17 03/28/17 03/28/17 Vitamin] Previous Rx's Medication Instructions Recorded Last Taken Type Ferrous Sulfate [Feosol 325 MG tab] 325 mg PO BID #60 tablet 03/25/17 03/28/17 Rx Ibuprofen [Motrin 600 MG tab] 600 mg PO Q8H PRN #30 tablet 03/29/17 Unknown Rx Lidocain2.5%/Prilocai2.5% [Emla] 5 gm TP 1XW #1 tube 03/29/17 Unknown Rx Ibuprofen [Motrin 800 MG tab] 800 mg PO ONCE #20 tablet 04/17/17 Unknown Rx Acetaminophen 500 mg PO Q8H PRN #30 tablet 07/16/17 Unknown Rx Prednisone [predniSONE 10 mg 10 mg PO .TAPER #1 tab.ds.pk 07/16/17 Unknown Rx (6-Day Pack, 21 Tabs)] diphenhydrAMINE [Benadryl CAP] 25 mg PO Q6HR PRN #20 capsule 07/16/17 Unknown Rx Allergies Allergy/AdvReac Type Severity Reaction Status Date / Time No Known Allergies Allergy Verified 04/17/17 18:14 ED Review of Systems ROS: Stated complaint: ALLERGIC REACTION Other details as noted in HPI Constitutional: denies: chills, fever Eyes: denies: eye pain, eye discharge, vision change ENT: denies: ear pain, throat pain Respiratory: denies: cough, shortness of breath, wheezing Cardiovascular: denies: chest pain, palpitations Endocrine: no symptoms reported Gastrointestinal: abdominal pain. denies: nausea, diarrhea Genitourinary: denies: urgency, dysuria, discharge Musculoskeletal: denies: back pain, joint swelling, arthralgia Skin: denies: rash, lesions Neurological: denies: headache, weakness, paresthesias Psychiatric: denies: anxiety, depression Hematological/Lymphatic: denies: easy bleeding, easy bruising ED Past Medical Hx - Past Medical History Hx Hypertension: No Hx Congestive Heart Failure: No Hx Diabetes: No Hx Deep Vein Thrombosis: No Hx Renal Disease: No Hx Sickle Cell Disease: No Hx Seizures: No Hx Asthma: No Hx COPD: No Hx HIV: No Additional medical history: Anemia, Seasonal allergies - Surgical History Past Surgical History?: No - Social History Smoking Status: Never Smoker Substance Use Type: None - Medications Home Medications: Home Medications Medication Instructions Recorded Confirmed Last Taken Type Ferrous Sulfate [Feosol 325 MG tab] 325 mg PO BID #60 tablet 03/25/17 03/28/17 03/28/17 Rx Vit-Fe Fumar-FA [ 1 tab PO QDAY 03/28/17 03/28/17 03/28/17 History Vitamin] Ibuprofen [Motrin 600 MG tab] 600 mg PO Q8H PRN #30 tablet 03/29/17 Unknown Rx Lidocain2.5%/Prilocai2.5% [Emla] 5 gm TP 1XW #1 tube 03/29/17 Unknown Rx Ibuprofen [Motrin 800 MG tab] 800 mg PO ONCE #20 tablet 04/17/17 Unknown Rx Acetaminophen 500 mg PO Q8H PRN #30 tablet 07/16/17 Unknown Rx Prednisone [predniSONE 10 mg 10 mg PO .TAPER #1 tab.ds.pk 07/16/17 Unknown Rx (6-Day Pack, 21 Tabs)] diphenhydrAMINE [Benadryl CAP] 25 mg PO Q6HR PRN #20 capsule 07/16/17 Unknown Rx ED Physical Exam - General Limitations: No Limitations General appearance: alert, in no apparent distress - Head Head exam: Present: atraumatic, normocephalic - Eye Eye exam: Present: normal appearance, PERRL, EOMI, periorbital swelling. Absent : periorbital tenderness Pupils: Present: normal accommodation - ENT ENT exam: Present: normal exam, normal orophraynx, mucous membranes moist, TM's normal bilaterally, normal external ear exam, other (No tongue swelling. No angioedema present. No lip swelling. Uvula midline with no swelling.) - Neck Neck exam: Present: normal inspection, full ROM. Absent: tenderness, meningismus, lymphadenopathy - Respiratory Respiratory exam: Present: normal lung sounds bilaterally. Absent: respiratory distress, wheezes, rales, rhonchi, stridor, chest wall tenderness, accessory muscle use, decreased breath sounds, prolonged expiratory - Cardiovascular Cardiovascular Exam: Present: regular rate, normal rhythm, normal heart sounds. Absent: irregular rhythm, systolic murmur, diastolic murmur, rubs, gallop - GI/Abdominal GI/Abdominal exam: Present: soft, tenderness (diffuse), normal bowel sounds. Absent: distended, guarding, rebound, rigid, diminished bowel sounds - Expanded GI/Abdominal Exam Expanded GI/Abdominal exam: Absent: psoas sign, obturator sign, heel tap sign, Castaneda's sign, Rovsing's sign, tenderness at Mcburney's Point, ascites - Rectal Rectal exam: Present: deferred - Extremities Exam Extremities exam: Present: normal inspection, full ROM, normal capillary refill - Back Exam Back exam: Present: normal inspection, full ROM - Neurological Exam Neurological exam: Present: alert, oriented X3, normal gait - Psychiatric Psychiatric exam: Present: normal affect, normal mood - Skin Skin exam: Present: warm, dry, intact, normal color. Absent: rash ED Course Vital Signs 07/15/17 07/16/17 07/16/17 23:18 03:40 04:10 Temperature 98.5 F Pulse Rate 97 H Respiratory 18 18 16 Rate Blood Pressure 143/94 O2 Sat by Pulse 97 Oximetry 07/16/17 07/16/17 04:29 04:59 Temperature Pulse Rate Respiratory 16 18 Rate Blood Pressure O2 Sat by Pulse Oximetry - Reevaluation(s) Reevaluation #1: 07/16/17 03:22 Patient is speaking in full sentences with no signs of distress noted. ED Medical Decision Making - Lab Data Result diagrams: 07/16/17 03:23 07/16/17 03:23 - Medical Decision Making This is a 31-year-old female that presents with allergic reaction to Advil. Patient is stable and was examined by me. Patient received 1 L of normal saline , Benadryl, Toradol, Solu-Medrol IV. Patient stated that all pain has improved and subsided after medical treatment. There is no angioedema present. No periorbital cellulitis. Labs obtained. CT of abdomen/pelvis with contrast obtained and detailed by the radiologist. Patient was notified of the CT report with no condition noted by the patient. Patient discharged with prednisone and Benadryl. Patient's mother is currently present at the bedside and stated she will drive the patient home after discharged due to drowsiness of Benadryl. Patient was instructed to Follow-up with a primary care doctor in 3-5 days or if symptoms worsen and continue return to emergency room as soon as possible. At time of discharge, the patient does not seem toxic or ill in appearance. No acute signs of distress noted. Patient agrees to discharge treatment plan of care. No further questions noted by the patient. Critical care attestation.: If time is entered above; I have spent that time in minutes in the direct care of this critically ill patient, excluding procedure time. ED Disposition Clinical Impression: Abdominal pain Qualifiers: Abdominal location: generalized Qualified Code(s): R10.84 - Generalized abdominal pain Allergic reaction Qualifiers: Encounter type: initial encounter Qualified Code(s): T78.40XA - Allergy, unspecified, initial encounter Disposition: DC- TO HOME OR SELFCARE Is pt being admited?: No Does the pt Need Aspirin: No Condition: Stable Instructions: Acute Abdominal Pain (ED), Prednisone (By mouth), Diphenhydramine (By mouth), Acetaminophen (By mouth) Additional Instructions: Follow-up with a primary care doctor in 3-5 days or if symptoms worsen and continue return to emergency room as soon as possible. Do not operate any machinery after discharge and will be taking Benadryl due to drowsiness. Prescriptions: Acetaminophen 500 mg PO Q8H PRN #30 tablet PRN Reason: Pain diphenhydrAMINE [Benadryl CAP] 25 mg PO Q6HR PRN #20 capsule PRN Reason: Itching Prednisone [predniSONE 10 mg (6-Day Pack, 21 Tabs)] 10 mg PO .TAPER #1 tab.ds.pk Referrals: [facility] [Other] - 3-5 Days PRIMARY CARE, [Referring] - 3-5 Days [facility] [Outside] - 3-5 Days [facility] [Outside] - 3-5 Days Forms: Work/School Release Form(ED)
[2017-07-16 03:37] LABS: Hematocrit 39.2 % (30.3-42.9); Hemoglobin 12.7 gm/dl (10.1-14.3); Mean Corpuscular HGB Conc 33 % (30-34); Mean Corpuscular Hemoglobin 26 pg (28-32); Mean Corpuscular Volume 78 fl (79-97); Platelet Count 342 K/mm3 (140-440); Red Cell Distribution Width 21.1 % (13.2-15.2)
[2017-07-16 03:48] LABS: BUN/Creatinine Ratio 28; Blood Urea Nitrogen 14 mg/dL (7-17); Calcium 8.8 mg/dL (8.4-10.2); Hemolysis Index 2
[2017-07-16] MEDS ORDERED: NACL ONE (03:57)
[2017-07-16] MEDS ORDERED: MORPHINE IV ONE (04:06)
[2017-07-16] MEDS ORDERED: ZOFRAN IV ONE (04:06)
--- NOTE | 2017-07-16 05:13 | Cat Scan Report ---
FINAL REPORT EXAM: CT ABDOMEN PELVIS W CON HISTORY: abd pain TECHNIQUE: Routine axial imaging was obtained of the abdomen and pelvis following the intravenous injection of 100 cc of Omnipaque 350. Delayed imaging was obtained through the kidneys, ureters and bladder. Sagittal and coronal reconstructions were also reviewed. FINDINGS: The lung bases are clear. Pleural fluid is not seen. The liver, gallbladder, pancreas, spleen, and adrenal glands appear normal. The kidneys enhance normally. The vascular structures enhance normally. The bowel loops are normal in caliber and course. There is non specific mild mucosal thickening in the colon extending from the transverse colon and into the descending colon and sigmoid colon. A very mild colitis cannot be excluded. There are no suspicious air for levels. The appendix appears normal. There is no evidence of free fluid or adenopathy. In the pelvis the uterus and bladder appear normal. The skeletal structures and soft tissues otherwise reveal an umbilical hernia containing omental fat measuring 3.4 cm in diameter. IMPRESSION: Slight prominence of the mucosa throughout the transverse descending and sigmoid colon as described. Mild colitis cannot be excluded. Small umbilical hernia containing omental fat.
[2017-07-16 05:28] LABS: Band Neutrophils # (Manual) 0.8 K/mm3; Basophils % (Manual) 0 % (0.0-1.8); Eosinophils % (Manual) 0 % (0.0-4.3); Total Cells Counted 100
[2017-07-16 05:29] LABS: Anisocytosis 1+; Hypochromasia Few
[2017-07-16 05:52] VITALS: BP 138/89
== END 2017-07-16 05:53 | disposition home or self-care (01) ==
LOC: ED 22:44
DX: T78.40XA Allergy, unspecified, initial encounter (principal); R10.84 Generalized abdominal pain; X58.XXXA Exposure to other specified factors, initial encounter
CPT/HCPCS: 36415; 74177; 80048; 83690; 84703; 85007; 85025; 96361; 96374; 96375; 99284; J1200; J1885; J2270; J2405; J2930; J7030; Q9967

== ENCOUNTER 2018-09-12 06:33 | Emergency (ER) | payer MEDICAID, OTHER ==
[2018-09-12 06:42] VITALS: BP 128/86
--- NOTE | 2018-09-12 08:13 | Emergency Department Report ---
Eye Injury/Foreign Body - HPI Duration: 2 Days Eye Location: Right Severity: Mild Eye Symptoms: Eye Pain: No, Blurred Vision: No, Eye Redness: No, Grinding/Hammering Metal: No, Used Eye Protection: No, Contact Lens Use: No, Recalls Injury: No, Photophobia: No Other History: Patient was sent to the hospital for medical clearance secondary to some right upper eyelid swelling and redness. Patient she has a stye that is developing. ED Review of Systems ROS: Stated complaint: RT EYE PAIN Other details as noted in HPI Comment: All other systems reviewed and negative ED Past Medical Hx - Past Medical History Previous Medical History?: No Hx Hypertension: No Hx Congestive Heart Failure: No Hx Diabetes: No Hx Deep Vein Thrombosis: No Hx Renal Disease: No Hx Sickle Cell Disease: No Hx Seizures: No Hx Asthma: No Hx COPD: No Hx HIV: No Additional medical history: Anemia, Seasonal allergies - Surgical History Past Surgical History?: No - Social History Smoking Status: Former Smoker Substance Use Type: Alcohol - Medications Home Medications: Home Medications Medication Instructions Recorded Confirmed Last Taken Type Ferrous Sulfate [Feosol 325 MG tab] 325 mg PO BID #60 tablet 03/25/17 03/28/17 03/28/17 Rx Vit-Fe Fumar-FA [ 1 tab PO QDAY 03/28/17 03/28/17 03/28/17 History Vitamin] Ibuprofen [Motrin 600 MG tab] 600 mg PO Q8H PRN #30 tablet 03/29/17 Unknown Rx Lidocain2.5%/Prilocai2.5% [Emla] 5 gm TP 1XW #1 tube 03/29/17 Unknown Rx Ibuprofen [Motrin 800 MG tab] 800 mg PO ONCE #20 tablet 04/17/17 Unknown Rx Acetaminophen 500 mg PO Q8H PRN #30 tablet 07/16/17 Unknown Rx Prednisone [predniSONE 10 mg 10 mg PO .TAPER #1 tab.ds.pk 07/16/17 Unknown Rx (6-Day Pack, 21 Tabs)] diphenhydrAMINE [Benadryl CAP] 25 mg PO Q6HR PRN #20 capsule 07/16/17 Unknown Rx Gentamicin 0.3% Ophth Oint 1 applicatio OP Q4H #1 tube 09/12/18 Unknown Rx Eye Injury Exam - Exam General: Vital signs noted. No distress. Alert and acting appropriately. Patient's right upper eyelid shows some very mild medial swelling. The actual head is normal intraocular movement normal pupils and no conjunctival injection. Patient alert and oriented 3 in no acute distress. ED Course Vital Signs 09/12/18 06:37 Temperature 97.8 F Pulse Rate 82 Respiratory 18 Rate Blood Pressure 128/86 O2 Sat by Pulse 99 Oximetry Critical care attestation.: If time is entered above; I have spent that time in minutes in the direct care of this critically ill patient, excluding procedure time. ED Disposition Clinical Impression: Craig Qualifiers: Laterality: right Eyelid: upper Qualified Code(s): H00.011 - Hordeolum externum right upper eyelid Disposition: DC-01 TO HOME OR SELFCARE Is pt being admited?: No Does the pt Need Aspirin: No Condition: Stable Instructions: Craig (ED) Prescriptions: Gentamicin 0.3% Ophth Oint 1 applicatio OP Q4H #1 tube Referrals: HIMA BOWERS MD [Primary Care Provider] - as needed Forms: Work/School Release Form(ED) Time of Disposition: 08:12
== END 2018-09-12 08:21 | disposition home or self-care (01) ==
LOC: ED 06:33
DX: H00.011 Hordeolum externum right upper eyelid (principal); Z87.891 Personal history of nicotine dependence
CPT/HCPCS: 99282